=== PATIENT | female | born 1940 | race Caucasian/White ===

== ENCOUNTER 2017-06-13 09:00 | Day surgery (SDC) | payer MEDICARE, BC ==
--- NOTE | 2017-06-13 07:35 | History and Physical Report ---
DATE: 06/13/2017. CHIEF COMPLAINT AND HISTORY OF CHIEF COMPLAINT: This is a patient with a history of an intractable postlaminectomy radiculitis. She does have a spinal opioid infusion system in place infusing hydromorphone. Over the last number of refills, it has been noted that she had battery depletion. She is here for battery change. PAST MEDICAL HISTORY: Hypertension, degenerative arthritis. PAST SURGICAL HISTORY: Tonsillectomy, tubal ligation, appendectomy, abdominal surgery, lumbar spinal surgery. SOCIAL HISTORY: Caffeine. FAMILY HISTORY: Cardiovascular disease, hypertension, cancer. MEDICATIONS ON ADMISSION: To be provided. ALLERGIES: Nonsteroidal anti-inflammatories. REVIEW OF SYSTEMS: The patient seems appropriate and in no acute distress. The remainder of the systems review shows hypertension and degenerative arthritis. PHYSICAL EXAMINATION: General: Height is 5 feet, 7 inches. Weight is 200 pounds. Vital Signs: Unavailable. HEENT: Within normal limits. Lungs: Clear. Heart: Regular rate and rhythm. Abdomen: Nontender. Musculoskeletal: Examination of the musculoskeletal system shows the pump pouch in the right inferior abdominal quadrant. The incision is intact. There is no breakdown or cellulitis. Neurologic: Cranial nerves are intact. IMPRESSION: 1. POSTLUMBAR LAMINECTOMY SYNDROME, ICD-10 CODE M96.1. 2. LUMBAR RADICULITIS, ICD-10 CODE M54.16 AND M54.17. 3. IMPLANTED SPINAL OPIOID INFUSION SYSTEM WITH HYDROMORPHONE. PLAN: The patient is here for replacement of the battery. There will be no change to her spinal opioid infusion system. There will be no changes made to her infusion characteristics. We may or we may not attempt diagnostics. All of the potential risks, side effects, and complications have been carefully reviewed and discussed. The patient understands and consents. APURVA GUERRERO D.O. Date & Time JOB NUMBER: [id number] cc: Danny Blanco
[~2017-06-13 09:00] MED LIST: ACETAMINOPHEN 1,000 MG/100 ML BTL IV ONE; CEFAZOLIN 2 Gram 2 GM/50 ML BAG IVPB ONE; FAMOTIDINE 20MG TABLET PO ONE; MECLIZINE 25 MG TABLET PO ONE; METOCLOPRAMIDE 10 MG TABLET PO ONE; MORPHINE SULFATE 0.4 GM in 0.9 % SODIUM CHLORIDE 100ML 40 ML IV ONE; MORPHINE SULFATE IV ONE; MORPHINE SULFATE/PF 0.05 MG in 0.9 % SODIUM CHLORIDE 10ML VIA 0.95 ML IV ONE; SODIUM CHLORIDE 0.9% IV ONE
[2017-06-13] MEDS ORDERED: DIPHENHYDRAMINE HCL 25 MG CAPSULE PO PRN ×2 (13:07)
[2017-06-13] MEDS ORDERED: OXYCODONE/APAP 10MG-325MG TABLET PO PRN ×2 (13:07)
[2017-06-13] MEDS ORDERED: METOCLOPRAMIDE HCL 10 MG/2 ML VIAL IVP PRN (13:07)
[2017-06-13] MEDS ORDERED: METOCLOPRAMIDE 10 MG TABLET PO PRN (13:07)
[2017-06-13] MEDS ORDERED: HYDROCODONE/APAP 7.5/325MG TABLET PO PRN (13:07)
[2017-06-13] MEDS ORDERED: DIPHENHYDRAMINE HCL IV 50 MG/ML VIAL IVP PRN ×2 (13:07)
[2017-06-13] MEDS ORDERED: AL HYDROX/MAG HYDROX 30ML UD PO PRN (13:07)
[2017-06-13] MEDS ORDERED: ACETAMINOPHEN 325 MG TAB PO PRN ×2 (13:07)
[2017-06-13] MEDS ORDERED: SENNOSIDES/DOCUSATE SODIUM UD CAPSULE PO PRN ×2 (13:07)
[2017-06-13] MEDS ORDERED: HYDROMORPHONE HCL 1 MG/ML CPJ IM PRN (13:07)
[2017-06-13] MEDS ORDERED: TEMAZEPAM 15 MG CAPSULE PO PRN ×2 (13:07)
[2017-06-13] MEDS ORDERED: HYDROMORPHONE HCL 2 MG/ML VIAL IM PRN (13:07)
[2017-06-13] MEDS ORDERED: RINGERS SOLUTION,LACTATED 1,000 ML IV PRN (13:30)
[2017-06-13] MEDS: RINGERS SOLUTION,LACTATED 1,000 ML IV SCH ×2 (14:49→22:10)
[2017-06-13] MEDS ORDERED: LIDOCAINE 1% W/EPI 1:200,000 MPF 30ML SQ ONE (16:21)
[2017-06-13] MEDS ORDERED: BUPIVACAINE 0.5% W/EPI MPF 30 ML VIAL IVP ONE (16:21)
[2017-06-13] MEDS ORDERED: CEFAZOLIN 1G VIAL IM ONE (16:21)
[2017-06-13] MEDS ORDERED: LIDOCAINE 2% MDV (20MG/ML) 20ML VIAL IV ONE (16:26)
[2017-06-13] MEDS ORDERED: FENTANYL PF 100MCG/2ML VIAL IV ONE (16:26)
[2017-06-13] MEDS ORDERED: MIDAZOLAM HCL 2MG/2ML VIAL IV ONE (16:26)
[2017-06-13] MEDS ORDERED: PROPOFOL 10 MG/ML VIAL IV ONE (16:26)
[2017-06-13] MEDS: CEFAZOLIN 2 Gram 2 GM/50 ML BAG IVPB SCH (18:06)
[2017-06-13] MEDS: PATIENT OWN MED: METOPROLOL 25 MG PO SCH (22:09)
[2017-06-13] MEDS: HYDROCODONE/APAP 7.5/325MG TABLET PO PRN (22:09)
[2017-06-13] MEDS: DILTIAZEM 120 MG PO SCH (22:10)
[2017-06-14] MEDS: HYDROCODONE/APAP 7.5/325MG TABLET PO PRN ×2 (02:06→09:29)
[2017-06-14] MEDS: CEFAZOLIN 2 Gram 2 GM/50 ML BAG IVPB SCH ×3 (02:06→10:56)
--- NOTE | 2017-06-14 07:08 | Operative Note - [place] ---
DATE OF SURGERY: 06/13/2017. PREOPERATIVE DIAGNOSES: 1. POSTLUMBAR LAMINECTOMY SYNDROME, ICD-10 CODE M96.1. 2. INTRASPINAL OPIOID INFUSION SYSTEM WITH MORPHINE WITH BATTERY DEPLETION. POSTOPERATIVE DIAGNOSES: 1. POSTLUMBAR LAMINECTOMY SYNDROME, ICD-10 CODE M96.1. 2. INTRASPINAL OPIOID INFUSION SYSTEM WITH MORPHINE WITH BATTERY DEPLETION. OPERATION: INCISION, SUBCUTANEOUS DISSECTION, AND REMOVAL AND REPLACEMENT OF [employer] PROGRAMMABLE PUMP, RIGHT LOWER ABDOMINAL QUADRANT. SURGEON: Efrain España D.O. ANESTHESIA: Local. ANESTHESIA PROVIDER: [place] Jay CRNA INDICATION: This patient presents with pain which starts in the back but extends into the legs. A spinal opioid infusion system is in place infusing morphine at 1.5 mg a day. Due to battery depletion, she is here for battery change without parameter change. PROCEDURE: Intravenous line, vital sign monitoring, and intravenous sedation. Prepped and draped with sterile technique. Under imaging the pump pouch in the lower right abdominal quadrant was identified and infiltrated. An incision was made and subcutaneous dissection was conducted to the pump's Dacron sleeve. The Dacron sleeve was opened, and the pump was exteriorized and from the catheter. A new pump was placed onto the field prefilled with morphine 30 mg, 10 mg per mL concentrate. The pump was interfaced to the indwelling catheter. The pump was secured into the pouch with nonabsorbable suture using the pump eyelet. The incision was then closed with Vicryl to the fascia and running subcuticular Vicryl for the skin. Dermabond closure was placed. She was transported to the recovery room stable, showing no side effects from the procedure or the sedation. The pump was programmed to deliver her baseline initial infusion at 1.5 mg per day. She will be monitored until stable and kept overnight for observation because of her history and lack of support and monitoring at home. DISCHARGE INSTRUCTIONS: 1. Site to remain clean and dry. No showering or bathing in any way that would disrupt dressings. If it happens, contact the clinic. 2. Standard medications to be resumed including Levaquin the antibiotic 500 mg once a day for 14 days. 3. She will be seen in the office in seven to ten days to check the incision. EFRAIN ESPAÑA D.O. Date & Time JOB NUMBER: [id number] cc: Danny Montes De Oca
[2017-06-14] MEDS: PATIENT OWN MED: METOPROLOL 25 MG PO SCH (09:25)
[2017-06-14] MEDS: DILTIAZEM 120 MG PO SCH (09:25)
[2017-06-14] MEDS: RINGERS SOLUTION,LACTATED 1,000 ML IV SCH (10:58)
== END 2017-06-14 12:00 | disposition home or self-care (01) ==
LOC: SUR 09:00 → MEDSURG 12:29 → SUR 06-14 12:00
PROVIDERS: ATTEND Pain Medicine Interventional Pain Medicine
DX: T85.890A Other specified complication of nervous system prosthetic devices, implants and grafts, initial encounter (principal); M96.1 Postlaminectomy syndrome, not elsewhere classified; M54.16 Radiculopathy, lumbar region; M54.17 Radiculopathy, lumbosacral region; G99.0 Autonomic neuropathy in diseases classified elsewhere; E03.9 Hypothyroidism, unspecified; M10.9 Gout, unspecified
CPT/HCPCS: 62362; 00300; 62367; 85002; J3010; J0690 ×2; J7120

== ENCOUNTER 2017-07-15 15:06 | Emergency (ER) | payer MEDICARE, BC ==
--- NOTE | 2017-07-15 15:37 | Emergency Department Record ---
History of Present Illness - General Chief Complaint: Abdominal Pain Stated Complaint: PAIN PUMP SWELLING OF TH E ABDOMEN Time Seen by Provider: 07/15/17 15:27 Source: Patient Mode of Arrival: Wheelchair Limitations: No limitations - History of Present Illness Initial Comments: The patient has had a pain pump battery replaced in a pump she has had in place for many years about a month ago. Five days ago she did see her pain specialist Dr. España due to the skin wound being open and having some contamination present from a swimming pool. The wound was closed and the patient was started on Doxycycline. Now for the last 2 days the pump area has become more swollen and slightly erythematous. She also states it is mildly more tender but denies any drainage, fever, chills, or vomiting. MD Complaint: Abdominal pain Onset/Timin -: Days(s) Location: RUQ, RLQ Quality: Burning Consistency: Constant Improves With: Nothing Worsens With: Nothing Associated Symptoms: Other - Related Data Home Medications Medication Instructions Recorded Confirmed Last Taken Allopurinol [Zyloprim] 300 mg PO DAILY 07/15/17 07/15/17 07/15/17 Cyanocobalamin (Vitamin B-12) 1,000 mcg IJ MONTHLY 07/15/17 07/15/17 07/01/17 [Cyanocobalamin Injection] Diltiazem HCl [Diltiazem ER] 120 mg PO DAILY 07/15/17 07/15/17 07/15/17 Disulfiram [Antabuse] 500 mg PO DAILY 07/15/17 07/15/17 07/15/17 Doxycycline Hyclate [Doxycycline] 100 mg PO BID 07/15/17 07/15/17 07/15/17 Estrogens, Conjugated [Premarin] 0.625 mg PO DAILY 07/15/17 07/15/17 07/15/17 Famotidine [Pepcid] 20 mg PO ASDIR 07/15/17 07/15/17 07/15/17 Ferrous Gluconate [Iron] 240 mg PO DAILY 07/15/17 07/15/17 07/15/17 Levothyroxine Sodium 25 mcg PO DAILY 07/15/17 07/15/17 07/15/17 Magnesium Oxide [Mag-Oxide] 200 mg PO DAILY 07/15/17 07/15/17 07/15/17 Metoprolol Tartrate [Lopressor] 25 mg PO Q12H 07/15/17 07/15/17 07/15/17 Pantoprazole Sodium [Protonix] 40 mg PO DAILY 07/15/17 07/15/17 07/15/17 Potassium Chloride [Klor-Con] 10 meq PO DAILY 07/15/17 07/15/17 07/15/17 Sertraline HCl [Zoloft] 50 mg PO DAILY 07/15/17 07/15/17 07/15/17 Previous Rx's Medication Instructions Recorded Cephalexin [Keflex] 500 mg PO TID #21 cap 07/15/17 Allergies Allergy/AdvReac Type Severity Reaction Status Date / Time NSAIDS (Non-Steroidal AdvReac Intermediate ulcer Verified 06/13/17 10:04 Anti-Inflamma Travel Screening - Travel/Exposure Within Last 30 Days Have you traveled within the last 30 days?: No - Travel/Exposure Within Last Year Have you traveled outside the [place] in the last year?: No - Additonal Travel Details Have you been exposed to anyone with a communicable illness?: No - Travel Symptoms Symptom Screening: None Review of Systems Constitutional: Reports: Malaise. Denies: Chills, Fever Eyes: Denies: Eye discharge ENT: Denies: Congestion Respiratory: Denies: Cough, Dyspnea Past Medical History - SOCIAL HISTORY Smoking Status: Never smoker Alcohol Use: None Drug Use: None - RESPIRATORY Hx Respiratory Disorders: Yes - CARDIOVASCULAR Hx Cardio Disorders: Yes Hx Hypertension: Yes (on meds well controlled) Hx Irregular Heartbeat: Yes (a fib?) - NEURO Hx Neuro Disorders: Yes Hx CVA: Yes (possible in the past) Hx Dementia: Yes (confused at times) Comment:: MRI for eye problems right - GI Hx GI Disorders: Yes Hx Reflux: Yes Hx Wt Loss/Wt Gain: Yes (recent gain 25 lbs) - Hx Genitourinary Disorders: Yes Hx Bladder Problem: Yes (incontinent wears depends) - ENDOCRINE Hx Endocrine Disorders: Yes Hx Thyroid Disease: Yes - MUSCULOSKELETAL Hx Musculoskeletal Disorders: Yes Hx Arthritis: Yes - PSYCH Hx Psych Problems: Yes Hx Anxiety: Yes Hx Depression: Yes Comment:: chemical dependency problems - HEMATOLOGY/ONCOLOGY Hx Hematology/Oncology Disorders: Yes Hx Anemia: Yes Family Medical History Any Significant Family History?: No Physical Exam - General General Appearance: Alert, Cooperative, No acute distress - Head Head exam: Atraumatic, Normocephalic, Normal inspection - Eye Eye exam: Normal appearance, PERRL - Neck Neck exam: Normal inspection, Full ROM. negative: Tenderness - Respiratory Respiratory exam: Normal lung sounds bilaterally. negative: Respiratory distress - Cardiovascular Cardiovascular Exam: Regular rate, Normal rhythm, Normal heart sounds - GI/Abdominal GI/Abdominal exam: Soft, Tenderness (There is mild tenderness to the pain pump area in the RLQ area of the abdominal wall skin. The area is very mildly erythematous and very slightly warm. There are no open areas of the incision and no drainage.). negative: Rebound, Rigid - Extremities Extremities exam: Normal inspection, Full ROM, Normal capillary refill. negative: Tenderness - Neurological Neurological exam: Alert. negative: Motor sensory deficit - Skin Skin exam: negative: Rash Course Vital Signs 07/15/17 15:26 Temperature 98.6 F Pulse Rate [ 61 Pulse Ox Probe] Respiratory 16 Rate Blood Pressure 126/66 [Left Arm] Pulse Ox 95 - Reevaluation(s) Reevaluation #1: The patient is doing well. I did discuss the case with Dr. España and he would like a dose of IV Abx's now and he will see the patient in the office in the morning. The patient understands and agrees with the plan. 07/15/17 16:24 Medical Decision Making - Lab Data Result diagrams: 07/15/17 15:40 07/15/17 15:40 Disposition Disposition: Discharge Clinical Impression: Cellulitis Qualifiers: Site of cellulitis: unspecified site Qualified Code(s): L03.90 - Cellulitis, unspecified Disposition: Home, Self-Care Condition: (1) Good Instructions: Cellulitis (ED) Additional Instructions: Please see Dr. España in the AM as planned. Continue your regular medicines including the Doxycyline. Please start the Keflex if OK with Dr. España. Return to the ER for any increased pain, swelling, fever, or redness. Prescriptions: Cephalexin [Keflex] 500 mg PO TID #21 cap Forms: Patient Portal Access Time of Disposition: 16:44 Quality - Quality Measures Quality Measures: N/A - Blood Pressure Screening View Details: Yes Does Patient Have Any of the Following: No Blood Pressure Classification: Hypertensive Reading Systolic Measurement: 150 Diastolic Measurement: 91 Screening for High Blood Pressure: < Pre-Hypertensive BP, F/U Documented > [ [id number]] Pre-Hypertensive Follow-up Interventions: Referral to alternative/primary care provider.
[2017-07-15 15:50] LABS: BASO % 0.9 % (0-6); EOS % 5.5 % (0-6); GRAN % 61.1 % (47-80); HEMATOCRIT 38.9 % (35.0-47.0); HEMOGLOBIN 12.4 gm/dl (11.6-16.0); LYMPH % 22.4 % (16-45); MEAN CELL VOLUME 98.2 fl (81-97); MEAN CORPUSCULAR HEMOGLOBIN 31.3 pg (27-33); MEAN CORPUSCULAR HGB CONC 31.9 g/dl (32-36); MEAN PLATELET VOLUME 10.2 fl (7.4-10.4); MONO % 10.1 % (0-9); PLATELET COUNT 291 K/uL (130-400); RED BLOOD COUNT 3.96 M/uL (3.80-5.40); RED CELL DISTRIBUTION WIDTH 13.8 % (11.5-14.5); WHITE BLOOD COUNT W/O DIFF 6.8 K/uL (4.2-12.2)
[2017-07-15 16:08] LABS: BLOOD UREA NITROGEN 17 mg/dL (8-23); C-REACTIVE PROTEIN 6.8 mg/dL (<0.5); CREATININE 0.5 mg/dL (0.5-0.9); EST GLOMERULAR FILTRATION RATE > 60 mL/min; GLUCOSE,RANDOM 85 mg/dL (74-109)
[2017-07-15] MEDS ORDERED: CEFTRIAXONE SODIUM 1 GM in 0.9 % SODIUM CHLORIDE 100ML 100 ML IVPB ONE (16:19)
[2017-07-15] MEDS ORDERED: CEFTRIAXONE SODIUM 2 GM in 0.9 % SODIUM CHLORIDE 100ML 100 ML IVPB ONE (16:21)
== END 2017-07-15 17:15 | disposition home or self-care (01) ==
LOC: ER 15:06
DX: L03.311 Cellulitis of abdominal wall (principal); R10.31 Right lower quadrant pain
CPT/HCPCS: 80048; 85025; 86140; 96365; 99284

== ENCOUNTER 2017-07-18 09:39 | Day surgery (SDC) | payer MEDICARE, BC ==
--- NOTE | 2017-07-18 06:15 | History and Physical Report ---
DATE: 07/17/2017. CHIEF COMPLAINT AND HISTORY OF CHIEF COMPLAINT: This patient had a spinal opioid infusion pump battery change on June 13, 2017, with the pump in the lower abdominal quadrant. She was seen on postoperative routine evaluation on June 26, 2017. At that evaluation it was noted that although the Dermabond dressing was in place, the more lateral margin of the incision was exposed. There appeared to be a flap of the skin which was healing but had not completely healed at that point. The dressing was changed, and the wound was cleaned. The lateral margin skin flap was healing, and it was not open. We re- dressed the area and continued her on her postoperative antibiotic which was Levaquin 500 mg once a day. We would then evaluate her in five to seven days. On July 03, 2017, she arrived. The dressing had completely come off. The site was inspected. She was afebrile. The lateral margin of the incision was continuing to heal, although the majority of the incision was well healed. The flap on the lateral margin was closing and appeared to be healing well. At that point, because of this healing, it was decided to keep the dressing off and expose it to air. At that point, she was told she could shower, clean the area gently, and keep it clean. We would then re-evaluate it in seven to ten days. On July 10, 2017, in the early a.m., the patient contacted the clinic indicating that there was drainage coming from her wound. She was brought in immediately and evaluated. At that time, we placed her in the procedure room and the site was inspected. A copious amount of clear fluid was draining from the lateral margin of the incision which was now open. The fluid which was draining was clear. At that time during questioning, the patient disclosed that she had been going to one of the local community pools with friends doing some rehab therapy in the pool. It appeared that there had been at least two episodes of her going into a community pool since she was last seen on July 03. The site was carefully inspected. The fluid was expressed from the pouch which had clearly filled with pool fluid. It was irrigated with preservative- free saline in the office. The site was carefully cleaned and a nylon suture was used to approximate the edges of the open part of the wound. Although this was slightly reddened, this did not appear to be demonstrating any infection. She continued to be afebrile. Her antibiotic was changed to doxycycline, and she was discharged for observation. On July 13, 2017, she was evaluated in the office. The site was clean. It was not showing any infection, although there were some mild erythematous changes. The pump pouch was clearly flattened. There appeared to be no distension and no indication of infection. She continued to be afebrile. She was told to keep the dressing on. At that time because of the potential for infection from the pool fluid, we discussed removing the abdominal pump and its catheter posteriorly and replacing it with a new pump posterior and a new catheter; both new incisions and both new device and catheter placement sites. The goal would be to maintain the continuous infusion and avoid the disruption of her spinal opioid infusion which would risk withdrawal. On July 14, 2017, I was contacted by the patient's family who indicated that there was swelling at the area of the pouch. I instructed them to go to the [place] emergency room. Once seen in the emergency room, I was contacted and the physician who indicated that there was some swelling in the area. The incision continued to be intact, although there was some mild redness. He suggested perhaps starting a second antibiotic with Keflex. We continued her on the doxycycline and continued to plan for the removal. The current plan as stated is to remove and replace. PAST MEDICAL HISTORY: Hypertension, degenerative arthritis. PAST SURGICAL HISTORY: Tonsillectomy, tubal ligation, appendectomy, abdominal surgery, lumbar spinal surgery, pump implant. SOCIAL HISTORY: Caffeine. FAMILY HISTORY: Cardiovascular disease, hypertension, cancer. MEDICATIONS ON ADMISSION: To be provided. ALLERGIES: Ibuprofen. REVIEW OF SYSTEMS: The patient seems appropriate and in no acute distress. The remainder of the systems review is as above. PHYSICAL EXAMINATION: General: Height is 5 feet 7 inches. Weight is 200 pounds. Vital Signs: Not available. HEENT: Within normal limits. Lungs: The lungs are clear. Heart: Regular rate and rhythm. Abdomen: Nontender. Musculoskeletal: Examination of the musculoskeletal system shows the incisional site in the right lower abdominal quadrant to be intact. The nylon suture is intact. There are some erythematous changes around this incision which had opened as above. There was obvious fluid accumulation in the area of the pouch and abdomen in the lower quadrant. The posterior incision for the spinal catheter was intact. There appeared to be no changes at that location. Neurologic: Cranial nerves are intact. IMPRESSION: 1. POSTLUMBAR LAMINECTOMY RADICULITIS, ICD-10 CODE M96.1, M54.16, AND M54.17. 2. INTRASPINAL INFUSION SYSTEM WITH POUCH COMPROMISE. PLAN: As stated, we will open the abdominal pouch and obtain appropriate cultures. We will remove, irrigate, and close. The indwelling spinal catheter for this device will be removed. We will replace the pump at the same concentration with a slight reduction in the infusion rate, implanting the new pump posteriorly below the belt line. A new catheter incisional site will be created so as to avoid the previous incision and potential contamination. Cultures will be taken of all sites involved in the initial implant, both pump and catheter. The procedure will be followed by an overnight stay for observation. Appropriate antibiotic therapy will be utilized based upon protocol. JOB NUMBER: [id number] cc: Bora Blackwell M.D. MTDD
[~2017-07-18 09:39] MED LIST changes: -MORPHINE SULFATE IV ONE; -SODIUM CHLORIDE 0.9% IV ONE; +VANCOMYCIN HCL 1,000 MG in 0.9 % SODIUM CHLORIDE 250ML 250 ML IVPB ONE
[2017-07-18] MEDS ORDERED: FENTANYL PF 100MCG/2ML VIAL IV ONE (09:40)
[2017-07-18] MEDS ORDERED: MIDAZOLAM HCL 2MG/2ML VIAL IV ONE (09:40)
[2017-07-18] MEDS ORDERED: CEFAZOLIN 1G VIAL IM ONE (09:40)
[2017-07-18] MEDS ORDERED: *PACU ONLY* KETAMINE HCL 10 MG/ML (20ML) VIAL IV ONE (09:40)
[2017-07-18] MEDS ORDERED: MORPHINE SULFATE 5 MG/ML PFS IVP ONE (09:40)
[2017-07-18] MEDS ORDERED: PROPOFOL 10 MG/ML VIAL IV ONE (09:40)
[2017-07-18] MEDS ORDERED: BUPIVACAINE 0.75% W/EPI MPF 30ML VIAL IVP ONE (09:40)
[2017-07-18] MEDS ORDERED: LIDOCAINE 2% MDV (20MG/ML) 20ML VIAL IV ONE (09:40)
[2017-07-18] MEDS ORDERED: LIDOCAINE 1% W/EPI 1:200,000 MPF 30ML SQ ONE (09:40)
[2017-07-18 10:07] LABS: BLEEDING TIME 5.5 MINUTES (1.5-7.0)
[2017-07-18 10:09] LABS: BASO % 0.5 % (0-6); EOS % 5.3 % (0-6); GRAN % 61.6 % (47-80); HEMATOCRIT 40.2 % (35.0-47.0); HEMOGLOBIN 12.7 gm/dl (11.6-16.0); LYMPH % 22.3 % (16-45); MEAN CELL VOLUME 97.1 fl (81-97); MEAN CORPUSCULAR HEMOGLOBIN 30.7 pg (27-33); MEAN CORPUSCULAR HGB CONC 31.6 g/dl (32-36); MEAN PLATELET VOLUME 9.7 fl (7.4-10.4); MONO % 10.3 % (0-9); PLATELET COUNT 320 K/uL (130-400); RED BLOOD COUNT 4.14 M/uL (3.80-5.40); RED CELL DISTRIBUTION WIDTH 13.5 % (11.5-14.5); WHITE BLOOD COUNT W/O DIFF 6.1 K/uL (4.2-12.2)
[2017-07-18 10:22] LABS: INR 0.9; PARTIAL THROMBOPLASTIN TIME 28.6 SECONDS (24.5-39.1); PROTHROMBIN TIME (PATIENT) 9.7 SECONDS (9.5-12.1)
[2017-07-18 10:24] LABS: BLOOD UREA NITROGEN 14 mg/dL (8-23); CREATININE 0.6 mg/dL (0.5-0.9); EST GLOMERULAR FILTRATION RATE > 60 mL/min; GLUCOSE,RANDOM 96 mg/dL (74-109)
[2017-07-18] MEDS ORDERED: AL HYDROX/MAG HYDROX 30ML UD PO PRN (15:06)
[2017-07-18] MEDS ORDERED: DIPHENHYDRAMINE HCL 25 MG CAPSULE PO PRN ×2 (15:06)
[2017-07-18] MEDS ORDERED: SENNOSIDES/DOCUSATE SODIUM UD CAPSULE PO PRN ×2 (15:06)
[2017-07-18] MEDS ORDERED: HYDROMORPHONE HCL 2 MG/ML VIAL IM PRN (15:06)
[2017-07-18] MEDS ORDERED: METOCLOPRAMIDE HCL 10 MG/2 ML VIAL IVP PRN (15:06)
[2017-07-18] MEDS ORDERED: METOCLOPRAMIDE 10 MG TABLET PO PRN (15:06)
[2017-07-18] MEDS ORDERED: ACETAMINOPHEN 325 MG TAB PO PRN ×2 (15:06)
[2017-07-18] MEDS ORDERED: DIPHENHYDRAMINE HCL IV 50 MG/ML VIAL IVP PRN ×2 (15:06)
[2017-07-18] MEDS ORDERED: OXYCODONE/APAP 10MG-325MG TABLET PO PRN ×2 (15:06)
[2017-07-18] MEDS ORDERED: TEMAZEPAM 15 MG CAPSULE PO PRN ×2 (15:06)
[2017-07-18] MEDS ORDERED: HYDROMORPHONE HCL 1 MG/ML CPJ IM PRN (15:06)
[2017-07-18] MEDS ORDERED: HYDROCODONE/APAP 7.5/325MG TABLET PO PRN (15:06)
[2017-07-18] MEDS ORDERED: NALOXONE 0.4 MG/1 ML VIAL IVP PRN (15:09)
[2017-07-18] MEDS: RINGERS SOLUTION,LACTATED 1,000 ML IV SCH (18:28)
[2017-07-18] MEDS: DILTIAZEM HCL 120 MG ER CAPSULE PO SCH ×2 (18:29→22:06)
[2017-07-18] MEDS: HYDROCODONE/APAP 7.5/325MG TABLET PO PRN (19:55)
[2017-07-18] MEDS: DOXYCYCLINE HYCLATE 100 MG CAPSULE PO SCH (22:17)
[2017-07-18] MEDS: METOPROLOL TART 25 MG TABLET PO SCH (22:18)
[2017-07-19] MEDS ORDERED: VANCOMYCIN HCL 1,000 MG in 0.9 % SODIUM CHLORIDE 250ML 250 ML IVPB ONE (00:45)
[2017-07-19] MEDS: RINGERS SOLUTION,LACTATED 1,000 ML IV SCH (02:24)
[2017-07-19] MEDS: HYDROCODONE/APAP 7.5/325MG TABLET PO PRN ×2 (02:27→06:14)
[2017-07-19] MEDS ORDERED: PANTOPRAZOLE SODIUM 40 MG TABLET PO SCH (07:00)
[2017-07-19] MEDS ORDERED: LEVOTHYROXINE SODIUM 25 MCG TABLET PO SCH (07:00)
--- NOTE | 2017-07-19 08:13 | Operative Note - [place] ---
DATE OF SURGERY: 07/18/2017. PREOPERATIVE DIAGNOSES: 1. POSTLUMBAR LAMINECTOMY SYNDROME, ICD-10 CODE M96.1. 2. THORACOLUMBAR ROTOSCOLIOSIS, ICD-10 CODE M41.25. 3. INTRACTABLE RADICULITIS, ICD-10 CODE M54.16 AND M54.17. 4. IMPLANTED SPINAL OPIOID INFUSION SYSTEM WITH MORPHINE. 5. PUMP POUCH CONTAMINATION WITH POOL WATER. POSTOPERATIVE DIAGNOSES: 1. POSTLUMBAR LAMINECTOMY SYNDROME, ICD-10 CODE M96.1. 2. THORACOLUMBAR ROTOSCOLIOSIS, ICD-10 CODE M41.25. 3. INTRACTABLE RADICULITIS, ICD-10 CODE M54.16 AND M54.17. 4. IMPLANTED SPINAL OPIOID INFUSION SYSTEM WITH MORPHINE. 5. PUMP POUCH CONTAMINATION WITH POOL WATER. OPERATION: 1. Incision, subcutaneous dissection, and removal of right lower abdominal quadrant pump. 2. Incision, subcutaneous dissection, and removal of spinal catheter implanted interfaced to pump at L2-3. 3. Incision, subcutaneous dissection, and placement of spinal catheter midline at L4-5. Thin-walled spinal catheter advanced into the spinal space under imaging at L2-3. 4. Diagnostic myelography with radiologic supervision and interpretation. 5. Incision, subcutaneous dissection, and anchoring of spinal catheter to supraspinous fascia using anchoring device and nonabsorbable suture. 6. Incision, subcutaneous dissection, and creation of subcutaneous pouch at left posterosuperior gluteal margin below the belt line, a site picked by the patient for the pump identified as a Medtronic 40 mL programmable filled with hydromorphone 30 mg per mL concentration. 7. Tunneling between pouches. Placement of the external portion of the spinal catheter into pump pouch. Resection of interface second catheter component. Second catheter component interfaced to pump. 8. Placement of pump into pouch securing to posterior fascia with nonabsorbable suture at two points with pump eyelets. 9. Closure of midline incision for spinal catheter; fascial closure with mayur. 10. Diagnostic myelography with radiologic supervision and interpretation using access port programmable pump. Confirmation of full integrity of pump catheter. 11. Closure of pump pouch with Vicryl for the fascia and amyur for the skin. 12. Epidural blood patch at L5-S1 with 15 mL of autologous blood drawn with sterile technique, left antecubital. 13. Programming of pump to deliver morphine by continuous infusion at a 50 percent reduction from baseline at 0.75 mg per day. 14. The patient will be transported to the recovery room flat with a pillow under her head and knees. SURGEON: Efrain España D.O. ANESTHESIA: Local sedation. ANESTHESIA PROVIDER: [place] Jay CRNA. INDICATION: This patient presents with a history of a routine pump battery change on June 13, 2017. On routine followup in the office she was noted to have the lateral margin of the incision with a skin flap which was slow to heal but intact. Subsequently, the patient returned to the office with copious amounts of clear fluid draining from the pouch with an indication that she had gone into a community swimming pool for aerobic exercises. When she was seen in the office approximately seven to ten days after her evaluation for the site check, the lateral margin of the pouch was open and the pump pouch was full of a clear fluid assumed to be swimming pool water. At that point, she was scheduled for removal of the system and replacement for concerns of infection. PROCEDURE: Intravenous line, vital sign monitoring, and intravenous sedation. Prepped and draped with sterile technique. The patient was positioned initially laterally in the Simon' position, right side up. The pump pouch incision was infiltrated. An incision was made and subcutaneous dissection was conducted to the pump. The pump was then exteriorized and removed. The catheter was resected as deep as possible. The Dacron sleeve enclosing the pump was then meticulously removed intact. Antibiotic irrigation and Bovie for hemostasis. The incision was closed with Vicryl for the fascia and mayur for the skin. The posterior incision for the catheter was then infiltrated. An incision was made and subcutaneous dissection was conducted to the anchor. The anchor was then cut and removed. A pursestring was placed, and then then indwelling spinal catheter was removed. A cerebrospinal fluid specimen for culture and Gram stain and aerobic and anaerobic cultures had been taken. The abdominal incision was also swabbed for aerobic and anaerobic cultures. With the catheter removed and the penetration point sealed by pursestring, no cerebrospinal fluid was noted. The incisions were both then closed with Vicryl for the fascia and mayur for the skin. She was then placed flat and positioned prone. At that point, the probable pump pouch at the left posterior gluteal margin was identified. The skin was infiltrated, an incision was made, and subcutaneous dissection was conducted to form a pouch of suitable size and depth for the pump identified as a Medtronic 40 mL programmable prefilled with a morphine solution of 30 mg per mL. A midline catheter placement site at L4-5 which was below the previous site was then infiltrated using a spinal needle, 20 gauge, through a paramedian approach , beveled with the long axis, using AP and lateral imaging. The needle was positioned into the subarachnoid space carefully and meticulously. There were no paraesthesias and no complaints of pain. With cerebrospinal fluid flow, a thin-walled spinal catheter was advanced at this penetration point at L4-5 and positioned at L2-3. The skin above the needle was infiltrated. An incision was made, and subcutaneous dissection was conducted to the supraspinous fascia. The needle was removed. The anchoring device was then secured to the supraspinous fascia with nonabsorbable suture. Diagnostic myelography was performed through the catheter confirming the catheter tip was at L2-3 and that there were appropriate flow characteristics. Antibiotic irrigation and Bovie for hemostasis at both sites. A tunneling tool was then used to carry the catheter into the pump pouch. The catheter was resected and interfaced with the second catheter component which was then interfaced to the pump filled with the morphine solution. The pump was placed into the pouch and secured to the posterior fascia with nonabsorbable suture. A second diagnostic myelogram was then performed, again to confirm the position of the catheter, that there were no kinks, and the functionality of the pump catheter connection under diagnostic imaging. With the pump in the pouch the catheter was placed in its own pouch. The incisions were then closed with Vicryl to the fascia and mayur for the skin. Dressings were placed. At L5-S1, which was one level below the dural puncture, the skin was infiltrated. A 17-gauge, 6-inch Tuohy needle was used to enter the epidural space. A total of 15 mL of autologous blood was drawn using sterile technique, left antecubital. An epidural blood patch was then performed at this level with this blood. The needle was removed and the dressings were reinforced. She was transferred to the recovery room stable with no side effects from the procedure and no complaints. She will be kept flat for four hours and then slowly elevated for one hour. She will be kept overnight for observation. In the morning she will be discharged. INSTRUCTIONS: 1. The sites are to remain clean and dry. No showering or bathing in any way that would disrupt dressings. If this happens, contact the clinic. 2. Standard medications to be resumed including doxycycline being continued for the next 10 to 14 days. 3. Spinal opioid side effects including respiratory depression, nausea, vomiting, constipation, and potential risks have all been discussed and reviewed. 4. Her infusion rate which was initially 1.5 was reduced to 0.75, or a 50 percent reduction, to account for the new catheter, different catheter location , and the possible change in flow characteristics. 5. The office is to contact the patient and she is to be seen in the office in seven to ten days to evaluate the sites. Until then, she is to keep her activities low. No bend, lift, push, or pull. Monitor for side effects such as lightheadedness, drowsiness, constipation, or urinary retention, or rash. She will contact the clinic should any side effects or complications occur. JOB NUMBER: [id number] cc: Ilia Montes De Oca
--- NOTE | 2017-07-19 09:00 | RADIOLOGY REPORT ---
EXAM: AP THORACOLUMBAR SPINE HISTORY: PAIN PUMP IMPLANT. TECHNIQUE: A single AP view of the thoracolumbar spine was obtained. Comparison: None. FINDINGS: There is a lumbar dextroscoliosis. Battery pack partially seen left lower quadrant. Faint wire extends from this to overlie the lumbar spine at the approximate L4 level and ascends up to probably only the L3 level where there is a tiny dot like appearance presumably representing the superior extent of the wire. Correlation with the procedure itself suggested. There is a catheter overlying the right mid abdomen. Skin type mayur overlie the left side of the abdomen as well as right side of the pelvis bilaterally. Surgical clips left upper quadrant of the abdomen with skin type mayur in this region as well. Degenerative change in the lumbar spine. There is an apparent old healed fracture laterally in the lower left rib, probably the ninth. IMPRESSION: APPARENT PAIN PUMP DEVICE IN PLACE WITH THE ASSOCIATED CATHETER/WIRE PROBABLY EXTENDING UP TO THE L3 LEVEL DESCRIBED ABOVE. OTHER POSTOP CHANGES SEEN BILATERALLY OVERLYING THE ABDOMEN AND PELVIS. JOB NUMBER: [id number] [facility]
[2017-07-19] MEDS ORDERED: SERTRALINE HCL 50 MG TABLET PO SCH (10:00)
[2017-07-19] MEDS ORDERED: FAMOTIDINE 20MG TABLET PO SCH (10:00)
[2017-07-19] MEDS ORDERED: POTASSIUM CHLORIDE 10 MEQ TAB PO SCH (10:00)
[2017-07-19] MEDS: METOPROLOL TART 25 MG TABLET PO SCH (10:53)
[2017-07-19] MEDS: DOXYCYCLINE HYCLATE 100 MG CAPSULE PO SCH (11:05)
[2017-07-19] MEDS: DILTIAZEM HCL 120 MG ER CAPSULE PO SCH (12:11)
== END 2017-07-19 15:00 | disposition home or self-care (01) ==
LOC: SUR 09:39 → MEDSURG 16:10 → SUR 07-19 15:00
PROVIDERS: ATTEND Pain Medicine Interventional Pain Medicine
DX: T85.738A Infection and inflammatory reaction due to other nervous system device, implant or graft, initial encounter (principal); T85.695A Other mechanical complication of other nervous system device, implant or graft, initial encounter; Z77.128 Contact with and (suspected) exposure to other hazards in the physical environment; E03.9 Hypothyroidism, unspecified; I10 Essential (primary) hypertension
CPT/HCPCS: 62350; 62362; 00630; 62367; 85025; 85730; 85610; 80048; 85002; 72020; 94760; Q9967; J3370; J3010; J2270; J3490; J0690; J7050; J7120